=== PATIENT | female | born 1985 ===

== ENCOUNTER 2019-10-15 05:30 | Day surgery (SDC) | payer OTHER ==
[~2019-10-15 05:30] MED LIST: PROAIR HFA8.5 GM IH; PULMICORT FLEX90 MCG IH; SYMBICORT 80/10.2 GM IH
== END 2019-10-15 15:25 | disposition home or self-care (01) ==
LOC: CIR.AMB 05:30 → ADM 08:45 → CIR.AMB 15:25
DX: Z30.2 Encounter for sterilization (principal); D26.1 Other benign neoplasm of corpus uteri